=== PATIENT | male | born 1970 | race Caucasian/White ===

== ENCOUNTER 2016-11-26 19:55 | Emergency (ER) | payer BC ==
--- NOTE | 2016-11-26 20:20 | EDM.PDOC ---
ED HPI GENERAL MEDICAL PROBLEM - General Chief Complaint: ENT Problem Stated Complaint: SWOLLEN GLANDS Time Seen by Provider: 11/26/16 20:06 Source of Information: Reports: Patient History Limitations: Reports: No Limitations - History of Present Illness INITIAL COMMENTS - FREE TEXT/NARRATIVE: The patient presents with right ear pain and right sided swollen lymph nodes. This has been going on since yesterday. He has had recurrent ear infections since July. He is seeing an ENT doctor when he gets home in 9 days. He has no fever or chills. He has no cough or congestion. Onset: Gradual Duration: Day(s): (Yesterday) Location: Reports: Other (Right ear and nec) Quality: Reports: Ache Severity: Moderate Improves with: Reports: None Worsens with: Reports: None Associated Symptoms: Reports: No Other Symptoms Right Neck Pain Score (Numeric/FACES): 4 - Related Data Allergies Allergy/AdvReac Type Severity Reaction Status Date / Time No Known Allergies Allergy Verified 11/26/16 20:02 Home Meds: Home Meds Amoxicillin/Clavulanate K [Augmentin 875 MG/125 MG] 1 tab PO Q12HR #20 tablet [Rx] Multivitamin [Multi-Vitamin Daily] 1 tab PO DAILY 11/26/16 [History] Past Medical History - Past Health History Medical/Surgical History: Denies Medical/Surgical History Social & Family History - Family History Family Medical History: Noncontributory - Tobacco Use Smoking Status *Q: Never Smoker - Recreational Drug Use Recreational Drug Use: No ED ROS ENT - Review of Systems Review Of Systems: See Below Constitutional: Reports: No Symptoms HEENT: Reports: Ear Pain Respiratory: Reports: No Symptoms Cardiovascular: Reports: No Symptoms Endocrine: Reports: No Symptoms GI/Abdominal: Reports: No Symptoms : Reports: No Symptoms Musculoskeletal: Reports: No Symptoms Skin: Reports: No Symptoms ED EXAM, ENT - Physical Exam Exam: See Below Exam Limited By: No Limitations General Appearance: Alert, No Apparent Distress Ears: Normal External Exam, Normal Canal, TM Bulging (on the right), TM Dullness (on right), TM Erythema (Mild on the right), TM Fluid (moderate on the right) Nose: Normal Inspection Mouth/Throat: Normal Inspection Head: Atraumatic, Normocephalic Neck: Lymphadenopathy (R) Respiratory/Chest: No Respiratory Distress, Lungs Clear, Normal Breath Sounds Cardiovascular: Regular Rate, Rhythm, No Edema, No Murmur GI/Abdominal: Soft, Non-Tender, No Organomegaly, No Mass Back: Normal Inspection Extremities: Normal Inspection Course - Vital Signs Last Recorded V/S: Last Vital Signs Temp 97.2 F 11/26/16 20:00 Pulse 68 11/26/16 20:00 Resp 16 11/26/16 20:00 BP 127/101 H 11/26/16 20:00 Pulse Ox 97 11/26/16 20:00 - Re-Assessments/Exams Free Text/Narrative Re-Assessment/Exam: 11/26/16 20:19 I will get him on some augmentin. Departure - Departure Time of Disposition: 20:20 Disposition: Home, Self-Care 01 Condition: Good Clinical Impression: Otitis media Qualifiers: Otitis media type: serous Chronicity: acute Laterality: right Recurrence: recurrent Qualified Code(s): H65.04 - Acute serous otitis media, recurrent, right ear - Discharge Information Prescriptions: Amoxicillin/Clavulanate K [Augmentin 875 MG/125 MG] 1 tab PO Q12HR #20 tablet Forms: ED Department Discharge Additional Instructions: Take the augmentin 2 times per day for 10 days. Continue with your other medications. Follow up with your doctor when you get home. Please return if you are worse.
== END 2016-11-26 20:30 | disposition home or self-care (01) ==
LOC: JD.ED 19:55
CPT/HCPCS: 99283